=== PATIENT | female | born 1975 | race Caucasian/White ===

== ENCOUNTER 2017-05-27 12:00 | Day surgery (SDC) | payer OTHER ==
[~2017-05-27] VITALS: Ht 152.4 cm; Wt 88.0 kg
[~2017-05-27 12:00] MED LIST: CIPR500T3 PO; HYDR-3240 PO; OMEP-110 PO; ONDA4TAB10 PO; TAMS-11 PO
[2017-05-27] MEDS ORDERED: LACTATED RINGERS 1,000 ML IV SCH (12:57)
[2017-05-27] MEDS ORDERED: LIDOCAINE-MPF 1%, 2ML INFIL ONE (13:00)
[2017-05-27 13:10] VITALS: BP 137/97
[2017-05-27] MEDS ORDERED: FENTANYL PF 100 MCG/2ML ONE ×2 (14:38→16:21)
[2017-05-27] MEDS ORDERED: MIDAZOLAM 1 MG/ML, 2ML ONE (14:39)
[2017-05-27] MEDS ORDERED: SUCCINYLCHOLINE 20 MG/ML, 10ML ONE (15:28)
[2017-05-27] MEDS ORDERED: PROPOFOL 10 MG/ML, 20ML ONE (15:28)
[2017-05-27] MEDS ORDERED: DEXAMETHASONE 4 MG/ML, 1ML ONE ×2 (15:28)
[2017-05-27] MEDS ORDERED: CEFAZOLIN 1,000 MG ONE (15:28)
[2017-05-27] MEDS ORDERED: ONDANSETRON 2MG/ML, 2ML ONE ×2 (15:28)
[2017-05-27] MEDS ORDERED: ACETAMINOPHEN 650 MG/20.3 ML UDC ONE (16:14)
[2017-05-27] MEDS ORDERED: OXYcodone 5 MG/5 ML ORAL.SOL UDC ONE ×2 (16:14→16:21)
[2017-05-27] MEDS: OXYcodone 5 MG/5 ML ORAL.SOL UDC PO PRN ×2 (16:15→16:24)
[2017-05-27] MEDS: FENTANYL PF 100 MCG/2ML IV PRN ×2 (16:25→16:35)
[2017-05-27] MEDS ORDERED: KETOROLAC 30 MG/1 ML IV PRN (16:30)
[2017-05-27] MEDS ORDERED: LABETALOL 5MG/ML, 20ML IV PRN (16:30)
[2017-05-27] MEDS ORDERED: HYDROmorphone 1 MG/ML, 1ML IV PRN (16:30)
[2017-05-27] MEDS ORDERED: LORazepam 2 MG/ML, 1ML IVPush PRN (16:30)
[2017-05-27] MEDS ORDERED: ACETAMINOPHEN 325 MG TABLET PO PRN (16:30)
[2017-05-27] MEDS ORDERED: PROMETHAZINE 25 MG/ML, 1ML IV PRN (16:30)
[2017-05-27] MEDS ORDERED: ALBUTEROL SULFATE 2.5 MG/3 ML NPPB PRN (16:30)
[2017-05-27] MEDS ORDERED: PROMETHAZINE 12.5 MG SUPP PR PRN (16:30)
[2017-05-27] MEDS ORDERED: hydrALAzine 20 MG/ML, 1ML IV PRN (16:30)
[2017-05-27] MEDS: MEPERIDINE/PF 25MG/0.5ML IVPush PRN ×2 (17:15→17:20)
[2017-05-27] MEDS ORDERED: LABETALOL 5MG/ML, 20ML IVPush PRN (20:00)
[2017-05-27] MEDS ORDERED: TAMSULOSIN 0.4 MG CAP.ER.24H PO SCH (21:00)
[2017-05-27] MEDS ORDERED: CIPROFLOXACIN 500 MG TABLET PO SCH (21:00)
[2017-05-28] MEDS ORDERED: OMEPRAZOLE 20 MG CAPSULE.DR PO SCH (09:00)
== END 2017-05-27 20:24 | disposition home or self-care (01) ==
LOC: OUT 12:00 → 4NOR 19:09 → OUT 20:24
PROVIDERS: ATTEND Urology
DX: N20.1 Calculus of ureter (principal); N13.5 Crossing vessel and stricture of ureter without hydronephrosis; F32.9 Major depressive disorder, single episode, unspecified; Z98.890 Other specified postprocedural states; Z79.899 Other long term (current) drug therapy
CPT/HCPCS: 52352; 74018; 76000; 81025; 82360; 88300; C1769; J2250; J3010; J7120; J0690; J1100; J2175; J2405; J2704; J0330